=== PATIENT | male | born 1990 | race Caucasian/White ===

== ENCOUNTER 2025-03-27 16:12 | Emergency (ER) | payer OTHER ==
[~2025-03-27 16:12] MED LIST: Iopamidol-370 76% 500 ML MDV (1 ML CHARGE) ONE
[2025-03-27 17:22] LABS: #Basophils 0.04 10x3/uL (0.0-0.2); #Eosinophils Less than 0.03 10x3/uL (0.0-0.7); #Monocytes 0.85 10x3/uL (0.11-0.59); #Neutrophils 6.33 10x3/uL (1.40-6.50); %Basophils 0.5 % (0.0-1.0); %Eosinophils 0.2 % (0.0-10.0); %Lymphocytes 14.1 % (21.0-51.0); %Monocytes 10.1 % (0.0-10.0); %Neutrophils 74.9 % (42.0-75.0); Hematocrit 44.6 % (42.0-52.0); Hemoglobin 15.3 g/dL (14.0-18.0); Mean Corpuscular Hemoglobin 28.2 pg (27.0-31.0); Mean Corpuscular Volume 82.3 fL (78.0-98.0); Platelet Count 421 10x3/uL (130-400); Red Blood Cell (RBC) Count 5.42 mill/uL (4.70-6.10); White Blood Cell (WBC) Count 8.45 10x3/uL (4.8-10.8)
[2025-03-27 17:33] LABS: Bacteria/HPF None Seen HPF (None Seen); CAUTI Indications for Culture Pelvic or flank pain; Glucose, Urine (Dipstick) Normal (Negative); Leukocyte Negative Leu/uL (Negative); Protein, Urine (Dipstick) 20 mg/dL (Neg-Trace); RBC/HPF None Seen HPF (0-3); Specific Gravity, Urine 1.026 (1.002-1.036); WBC/HPF None Seen HPF (0-3)
[2025-03-27 17:39] LABS: Urine Culture Reflex No No
[2025-03-27 17:40] LABS: ALT (SGPT) 16 U/L (Less than 45); AST (SGOT) 25 U/L (11-34); Acetaminophen Less than 10 mcg/mL (Less than 10); Albumin 4.9 g/dL (3.1-4.5); Alkaline Phosphatase 77 U/L (40-110); Anion Gap 17 mmol/L (10-20); BUN (Urea Nitrogen) 16 mg/dL (8.9-20.6); Bilirubin, Total 0.6 mg/dL (0.3-1.2); CK (CPK) 159 U/L (30-200); Calc. Creatinine Clearance 0 mL/min (70-130); Calcium 9.6 mg/dL (7.8-10.44); Carbon Dioxide 24 mmol/L (22-29); Chloride 100 mmol/L (98-107); Globulin 3.0 g/dL (2.4-3.5); Glucose 119 mg/dL (70-105); Potassium 3.9 mmol/L (3.5-5.1); Salicylate Less than 8.0 mg/dL (Less than 8.0); Sodium 137 mmol/L (136-145)
[2025-03-27 17:44] LABS: Cocaine Metabolite Screen Negative (Negative); THC/Cannabinoid Screen PRELIM POSITIVE (Negative); Tricyclic Screen Negative (Negative)
== END 2025-03-27 21:33 | disposition home or self-care (01) ==
LOC: ERS 16:12
DX: F30.10 Manic episode without psychotic symptoms, unspecified (principal)
CPT/HCPCS: 70470; 80053; 80306; 80307; 81001; 82550; 83605; 84443; 85025; 93005; 96374; J2060; Q9967

== ENCOUNTER 2025-03-29 07:52 | Emergency (ER) | payer OTHER | END 2025-03-29 10:34 | disposition home or self-care (01) | LOC: ERS 07:52 | DX: L08.9 Local infection of the skin and subcutaneous tissue, unspecified (principal) | CPT/HCPCS: 99282 ==